=== PATIENT | female | born 1945 ===

== ENCOUNTER 2019-01-25 13:05 | Inpatient (IN) | payer MEDICARE ==
[~2019-01-25] VITALS: Ht 162.6 cm; Wt 67.6 kg
[2019-01-25] MEDS ORDERED: ELIQUIS5 MG PO (15:45)
[2019-01-25] MEDS ORDERED: BAYER CHEWABLE81 MG PO (15:45)
[2019-01-25] MEDS ORDERED: LIPITOR40 MG PO (15:46)
[2019-01-25] MEDS ORDERED: KLONOPIN0.5 MG PO (15:46)
[2019-01-25] MEDS ORDERED: PROZAC10 MG PO (15:46)
--- NOTE | 2019-01-25 17:10 | NUR ---
SPOKE WITH DR ANAYA PERTAINING TO PT'S BLOOD THINNER MEDICATIONS. ORDERS TO START ON ELIQUIS 5MG BID. ORDERS PLACED.
[2019-01-25 21:17] VITALS: BP 121/55
--- NOTE | 2019-01-25 21:31 | NUR ---
AWAKE AND RESTING IN BED. RESPIRATIONS UNALBORED. SPEECH GARLBLED. MOVES EXTREMITIES WELL WITH MILD LEFT SIDED WEAKNESS. NO ACUTE DISTRESS NOTED. CALL LIGHT IN REACH.
--- NOTE | 2019-01-26 01:02 | NUR ---
SLEEPING IN BED WITH RESPIRAITONS UNLABORED. NO DISTRESS NOTED. CALL LIGHT IN REACH.
--- NOTE | 2019-01-26 05:16 | NUR ---
QUIET HOURS. RESTING IN BED WITH NO DISTRESS NOTED. NO ACUTE CHANGES IN CONDITION THIS SHIFT. CALL LIGHT IN REACH.
[2019-01-26 07:33] LABS: BASOPHILS 0.7 % (0-2); EOSINOPHILS 2.2 % (0-7); HEMATOCRIT 35.9 % (36.0-48.0); HEMOGLOBIN 11.9 g/dL (12-16); IMMATURE GRANULOCYTES 0.4 % (0-5); LYMPHOCYTES 20.8 % (15-50); MCH 29.5 pg (26.0-34.0); MCHC 33.1 g/dL (31.0-37.0); MCV 89.1 fL (80.0-100.0); MONOCYTES 15.5 % (2-11); NEUTROPHILS 60.4 % (40-80); PLATELET COUNT 198 10x3/uL (130-400); RBC 4.03 10x6/uL (4.00-5.40); WBC 5.3 10x3/uL (4.8-10.8)
[2019-01-26 08:00] VITALS: BP 114/57
[2019-01-26 08:06] LABS: CALC OSMOLALITY 280 mosm/kg (275-300); CARBON DIOXIDE 26.9 mmol/L (21.0-32.0); CHLORIDE - SERUM 105 mmol/L (98-107); CREATININE - SERUM 0.6 mg/dL (0.6-1.3); GLUCOSE 94 mg/dL (74-106); POTASSIUM - SERUM 3.6 mmol/L (3.5-5.1); SODIUM 141 mmol/L (136-145); UREA NITROGEN 13 mg/dL (7-18); eGFR NON AFRICAN AMERICAN > 90 mL/min (90-120)
--- NOTE | 2019-01-26 08:45 | NUR ---
PT AM MEDS ADMINISTERED WHOLE WITH THICKENED WATER. PT SITTING UP FOR BREAKFAST D/T WRONG TRAY BEING INITIALLY BROUGHT. PT DENIES NEEDS. WCTM.
[2019-01-26 09:13] VITALS: Ht 162.6 cm; Wt 67.6 kg
[2019-01-26 19:34] VITALS: BP 118/59
--- NOTE | 2019-01-26 20:04 | NUR ---
AWAKE AND ALERT. SITTING UP IN BED. ASSIST TO BATHROOM TO BRUSH TEETH. MOVES EXTREMITIES WELL. SPEECH SLOW AND GARBLED AT TIMES. OTHER TIMES SHE CAN SAY WORDS CLEARLY. RESPIRATIONS UNLABORED. N0 ACUTE DISTRESS NOTED.
--- NOTE | 2019-01-26 23:47 | NUR ---
PATIENT GOT OUT OF BED WITHOUT CALLING FOR ASSISTANCE. THAT IS THE SECOND TIME THIS SHIFT. BED ALARM ON. REMINDED PAITENT TO ALWAYS CALL FOR ASSISTANCE BEFORE GETTING OUT OF BED. VOICES UNDERSTANDING.
--- NOTE | 2019-01-27 01:28 | NUR ---
RESTING IN BED WITH EYES CLOSED AND RESPIRATIONS UNLABORED. NO DISTRESS NOTED. CALL LIGHT IN REACH.
--- NOTE | 2019-01-27 05:36 | NUR ---
QUIET HOURS. AFTER EDUCATION DONE ON NOT GETTING UP WITHOUT CALLING FOR ASSISTANCE PATIENT DID CALL NURSE BEFORE GOING TO BATHROOM A LITTLE WHILE AGO. NOW RESTING IN BED WITH NO ACUTE DISTRESS NOTED. CALL LIGHT IN REACH.
[2019-01-27 07:24] LABS: BASOPHILS 0.4 % (0-2); EOSINOPHILS 2.8 % (0-7); HEMATOCRIT 36.1 % (36.0-48.0); HEMOGLOBIN 11.5 g/dL (12-16); IMMATURE GRANULOCYTES 0.6 % (0-5); LYMPHOCYTES 24.5 % (15-50); MCH 29.6 pg (26.0-34.0); MCHC 31.9 g/dL (31.0-37.0); MCV 92.8 fL (80.0-100.0); MEAN PLATELET VOLUME 10.5 fL (7.4-10.4); MONOCYTES 14.8 % (2-11); NEUTROPHILS 56.9 % (40-80); PLATELET COUNT 250 10x3/uL (130-400); RBC 3.89 10x6/uL (4.00-5.40); WBC 4.9 10x3/uL (4.8-10.8)
[2019-01-27 07:37] VITALS: BP 112/57
[2019-01-27 07:50] LABS: CALC OSMOLALITY 277 mosm/kg (275-300); CARBON DIOXIDE 29.4 mmol/L (21.0-32.0); CHLORIDE - SERUM 104 mmol/L (98-107); CREATININE - SERUM 0.7 mg/dL (0.6-1.3); GLUCOSE 88 mg/dL (74-106); POTASSIUM - SERUM 3.4 mmol/L (3.5-5.1); SODIUM 140 mmol/L (136-145); UREA NITROGEN 12 mg/dL (7-18); eGFR NON AFRICAN AMERICAN 87 mL/min (90-120)
--- NOTE | 2019-01-27 09:21 | NUR ---
PT AM MEDS ADMINISTERED. PT DENIES NEEDS. WCTM.
--- NOTE | 2019-01-27 19:45 | NUR ---
PT SITTING UP IN BED WATCHING TV. ALERT AND ORIENTED X4. NO CONCERNS VOICED. DENIES ANY PAIN.
[2019-01-27 20:36] VITALS: BP 117/45
--- NOTE | 2019-01-27 22:09 | NUR ---
PT RESTING IN BED VISITING WITH HER ROOM MATE. NO NEEDS VOICED.
--- NOTE | 2019-01-27 23:37 | NUR ---
I have reviewed this patient and I concur with the Shift Assessment completed by the Licensed Practical Nurse today this shift.
--- NOTE | 2019-01-28 03:19 | NUR ---
RESTING IN BED WITH EYES CLOSED.
--- NOTE | 2019-01-28 06:32 | NUR ---
PT RESTING IN BED WITH EYES CLOSED. NO ACUTE DISTRESS NOTED.
[2019-01-28 08:07] VITALS: BP 104/46
--- NOTE | 2019-01-28 08:55 | NUR ---
ALERT AND ORIENTED. NO C/O PAIN. RESP EVEN AND UNLABORED. CL IN REACH.
--- NOTE | 2019-01-28 16:40 | NUR ---
NO CHANGE IN ASSESSMENT. NO C/O PAIN. RESP EVEN AND UNLABORED. FAMILY AT BS. CL IN REACH.
[2019-01-28 20:00] VITALS: BP 100/41
--- NOTE | 2019-01-28 23:36 | NUR ---
I have reviewed this patient and I concur with the Shift Assessment completed by the Licensed Practical Nurse today this shift.
--- NOTE | 2019-01-29 02:27 | NUR ---
RESTING IN BED WITH EYES CLOSED.
--- NOTE | 2019-01-29 05:59 | NUR ---
PT RESTING QUIETLY IN BED WITH EYES CLOSED. NO ACUTE DISTRESS NOTED.
--- NOTE | 2019-01-29 07:32 | NUR ---
ALERT. EXPRESSIVE APHASIA. NO C/O PAIN. RESP EVEN AND UNLABORED. CL IN REACH.
[2019-01-29 08:36] VITALS: BP 112/43
--- NOTE | 2019-01-29 13:33 | NUR ---
NO DISTRESS NOTED. FAMILY IN ROOM. BED ALARM IN USE. CL IN REACH.
--- NOTE | 2019-01-29 16:34 | NUR ---
FAMILY AT BS. PATIENT SITTING IN CHAIR. NO DISTRESS NOTED. CL IN REACH.
--- NOTE | 2019-01-29 19:16 | NUR ---
PT IS RESTING IN BED WITH EYES OPEN. ALERT AND ORIENTED X 3. DENIES ACUTE PAIN OR DISCOMFORT. PT IS VERBALLY APHASIC, AND HAS TROUBLE SAYING THINGS CORRECTLY AT TIMES. VSS. SR'S ARE UP X 2 IN BED. CALL LIGHT AND BEDSIDE TABLE ARE WITHIN EASY REACH.
[2019-01-29 19:25] VITALS: BP 111/53
--- NOTE | 2019-01-29 21:25 | NUR ---
I have reviewed this patient and I concur with the Shift Assessment completed by the Licensed Practical Nurse today this shift.
--- NOTE | 2019-01-29 23:24 | NUR ---
PT RESTING IN BED WITH EYES CLOSED. NO ACUTE DISTRESS NOTED.
--- NOTE | 2019-01-30 04:10 | NUR ---
RESTING IN BED WITH EYES CLOSED.
--- NOTE | 2019-01-30 07:23 | NUR ---
RESTING W DISTRESS. NO C/O PAIN. ALARM ON BED.
[2019-01-30 08:00] VITALS: BP 91/48
--- NOTE | 2019-01-30 08:11 | NUR ---
SHOWER GIVEN PER NURSING.
--- NOTE | 2019-01-30 09:07 | NUR ---
NON COMPLIANT WITH SAFETY PRECAUTIONS. TURNS OFF ALARM. GETS UP BY HERSELF. DOES NOT WANT FAMILY OR STAFF TO ASSIST HER TO BR. SAFETY REINFORCED.
--- NOTE | 2019-01-30 14:04 | NUR ---
PATIENT ADMITTED TO REHAB FROM AN OUTSIDE FACILITY. PATIENT HAS SUSTAINED A CVA AND AT THIS TIME DISCHARGE PLANS ARE UNCERTAIN. WILL CONTINUE TO FOLLOW WITH PATIENT AND WILL AISST WITH NEEDS.
--- NOTE | 2019-01-30 19:04 | NUR ---
VISITING WITH FAMILY. FAMILY IS WHEELING HER AROUND TO LOBBY. NO ACUTE DISTRESS NOTED.
--- NOTE | 2019-01-30 20:03 | NUR ---
BACK IN ROOM. RESTING IN BED WITH NO ACUTE DISTRESS NOTED. CONTINUES TO HAVE EXPRESSIVE APHASIA. CALL LIGHT IN REACH.
[2019-01-30 20:37] VITALS: BP 144/48
--- NOTE | 2019-01-30 23:42 | NUR ---
RESTING IN BED WITH EYES CLOSED AND RESPIRATIONS UNLABORED. NO DISTRESS NOTED. CALL LIGHT IN REACH.
--- NOTE | 2019-01-31 02:33 | NUR ---
SLEEPING WITH RESPIRATIONS UNLABORED. NO DISTRESS NOTED.
--- NOTE | 2019-01-31 05:43 | NUR ---
QUIET HOURS. NO ACUTE CHANGES IN CONDITION THIS SHIFT. HAS BEEN UP TO BATHROOM A COUPLE OF TIMES THIS SHIFT BUT SLEPT OTHERWISE. RESPIRATIONS UNLABORED. NO DISTRESS NOTED.
[2019-01-31 07:42] VITALS: BP 98/46
[2019-01-31 07:49] LABS: BASOPHILS 0.7 % (0-2); EOSINOPHILS 2.8 % (0-7); HEMATOCRIT 34.7 % (36.0-48.0); IMMATURE GRANULOCYTES 0.2 % (0-5); LYMPHOCYTES 20.7 % (15-50); MCH 29.4 pg (26.0-34.0); MCHC 31.7 g/dL (31.0-37.0); MCV 92.8 fL (80.0-100.0); MONOCYTES 15.7 % (2-11); NEUTROPHILS 59.9 % (40-80); PLATELET COUNT 271 10x3/uL (130-400); RBC 3.74 10x6/uL (4.00-5.40); RDW 13.9 % (11.5-14.5); WBC 4.6 10x3/uL (4.8-10.8)
--- NOTE | 2019-01-31 08:01 | NUR ---
ALERT AND ORIENTED. NO C/O PAIN. RESP EVEN AND UNLABORED. CL IN REACH.
[2019-01-31 08:03] LABS: CALC OSMOLALITY 279 mosm/kg (275-300); CALCIUM 8.4 mg/dL (8.5-10.1); CARBON DIOXIDE 27.5 mmol/L (21.0-32.0); CHLORIDE - SERUM 106 mmol/L (98-107); CREATININE - SERUM 0.6 mg/dL (0.6-1.3); GLUCOSE 91 mg/dL (74-106); POTASSIUM - SERUM 4.5 mmol/L (3.5-5.1); SODIUM 140 mmol/L (136-145); UREA NITROGEN 14 mg/dL (7-18); eGFR NON AFRICAN AMERICAN > 90 mL/min (90-120)
--- NOTE | 2019-01-31 11:01 | NUR ---
Nutrition Follow-up: Diet: Regular with chopped meats and thin liquids PO intake: ~88% average x 10 meals Labs and meds reviewed. +BM STILL NO WEIGHT ENTERED INTO CHART SINCE ADMIT. Continue current nutrition regimen. Please get weight on pt. RD Following
--- NOTE | 2019-01-31 13:25 | NUR ---
RESTING. NO DISTRESS. AT BS. CL IN REACH.
--- NOTE | 2019-01-31 16:38 | NUR ---
NO CHANGE IN ASSESSMENT. RESP EVEN AND UNLABORED. CL IN REACH. IN ROOM.
--- NOTE | 2019-01-31 19:00 | NUR ---
AWAKE AND ALERT. SITTING ON BED TALKING WITH DAUGHTER. STATES SHE HAD A GOOD DAY. CONTINUES TO HAVE EXPRESSIVE APHASIA BUT IS CONCENTRATING MORE ON WORDS AND SPEAKING BETTER. NO NEEDS VOICED. NO DISTRESS NOTED.
[2019-01-31 20:56] VITALS: BP 130/49
--- NOTE | 2019-02-01 06:09 | NUR ---
QUIET HOURS. NO ACUTE CHANGES IN CONDITION THIS SHIFT. RESTING IN BED WITH NO DISTRESS NOTED. CALL LIGHT IN REACH.
[2019-02-01 07:57] VITALS: BP 118/43
--- NOTE | 2019-02-01 08:03 | NUR ---
PT SITTING UP EATING BREAKFAST, DENIES NEEDS. WCTM.
[2019-02-01 15:17] LABS: ERYTHROCYTE SEDIMENTATION RATE 10 mm/hr (0-30)
--- NOTE | 2019-02-01 17:30 | NUR ---
PT EATING DINNER, DENIES NEEDS. WCTM.
--- NOTE | 2019-02-01 19:20 | NUR ---
BEDSIDE REPORT COMPLETE. PT SITTING UP IN BED VISITING WITH FAMILY. NO CONCERNS VOICED. DENIES ANY PAIN. RR EVEN AND UNLABORED. VS STABLE. SHIFT ASSESSMENT COMPLETE. CALL LIGHT WITHIN REACH, FALL PRECAUTIONS IN PLACE. WILL CONTINUE TO MONITOR
[2019-02-01 20:45] VITALS: BP 114/51
--- NOTE | 2019-02-01 23:57 | NUR ---
PT LYING IN BED EYES CLOSED RESTING QUIETLY. NO SIGNS OF DISTRESS NOTED.
--- NOTE | 2019-02-02 03:13 | NUR ---
PT LYING IN BED EYES CLOSED RESTING QUIETLY.
--- NOTE | 2019-02-02 05:39 | NUR ---
PT LYING IN BED EYES CLOSED RESTING. RR EVEN AND UNLABORED. WILL CONTINUE TO MONITOR
[2019-02-02 07:32] VITALS: BP 110/54
--- NOTE | 2019-02-02 07:40 | NUR ---
PT AM MEDS ADMINISTERED. PT DENIES NEEDS. WCTM.
--- NOTE | 2019-02-02 11:03 | NUR ---
CARE TEAM MEETING: PATIENT FAMILY ATTENDED THE MEETING. PATIENT TENATIVE DISCHARGE DATE IS 02/08/19 WHERE SHE WILL DISCHARGE HOME WITH HER FAMILY. WILL CONTINUE TO FOLLOW WITH PATIENT.
--- NOTE | 2019-02-02 19:35 | NUR ---
PT SITTING UP WATCHING TV. CL IN REACH. DENIES NEEDS AT THIS TIME. BED IN LOW SIDE RAILS X2. A/O X4. LUNGS CLEAR. BOWEL ACTIVE X4. RESP EVEN AND UNLABORED. WILL CONTINUE TO MONITOR.
[2019-02-02 21:11] VITALS: BP 126/50
--- NOTE | 2019-02-02 23:45 | NUR ---
UP TO BATHROOM. DENIES NEEDS. CL IN REACH. WCTM
--- NOTE | 2019-02-03 01:30 | NUR ---
PT UP TO BATHROOM. DENIES NEEDS AT THIS TIME. WCTM CL IN REACH.
--- NOTE | 2019-02-03 04:28 | NUR ---
I have reviewed this patient and I concur with the Shift Assessment completed by the Licensed Practical Nurse today this shift.
[2019-02-03 06:40] LABS: EOSINOPHILS 3.1 % (0-7); HEMATOCRIT 37.7 % (36.0-48.0); HEMOGLOBIN 11.7 g/dL (12-16); IMMATURE GRANULOCYTES 0.4 % (0-5); LYMPHOCYTES 23.7 % (15-50); MCH 29.3 pg (26.0-34.0); MCV 94.5 fL (80.0-100.0); MEAN PLATELET VOLUME 9.6 fL (7.4-10.4); MONOCYTES 14.7 % (2-11); NEUTROPHILS 57.1 % (40-80); PLATELET COUNT 273 10x3/uL (130-400); RBC 3.99 10x6/uL (4.00-5.40); RDW 13.9 % (11.5-14.5); WBC 5.2 10x3/uL (4.8-10.8)
[2019-02-03 06:48] LABS: CALC OSMOLALITY 282 mosm/kg (275-300); CALCIUM 8.1 mg/dL (8.5-10.1); CARBON DIOXIDE 26.1 mmol/L (21.0-32.0); CHLORIDE - SERUM 108 mmol/L (98-107); CREATININE - SERUM 0.6 mg/dL (0.6-1.3); GLUCOSE 84 mg/dL (74-106); POTASSIUM - SERUM 4.9 mmol/L (3.5-5.1); SODIUM 142 mmol/L (136-145); UREA NITROGEN 14 mg/dL (7-18); eGFR NON AFRICAN AMERICAN > 90 mL/min (90-120)
--- NOTE | 2019-02-03 08:17 | NUR ---
PT AM MEDS ADMINISTERED. PT DENIES NEEDS. WCTM.
[2019-02-03 08:55] VITALS: BP 108/51
--- NOTE | 2019-02-03 14:42 | NUR ---
Nutrition Follow Up: Patient has been eating well. She has some trouble speaking. She stated her appetite has been good. Denies N/V/D/C. She stated she wanted her diet with normal meats and she can drink out of straws. Dietitian changed patient to a regular diet. No nutrition concerns at this time. Clinical dietitian following
--- NOTE | 2019-02-03 17:38 | NUR ---
PT EATING DINNER, DENIES NEEDS. WCTM
--- NOTE | 2019-02-03 20:00 | NUR ---
PATIENT RECEIVED SITTING UP IN BED WATCHING TV. ASSESSMENT & VITAL SIGNS DONE. NO C/O PAIN OR DISTRESS. BED LOW. ALARM ON. CALL LIGHT WITHIN REACH.WILL CONTINUE TO MONITOR.
[2019-02-03 22:00] VITALS: BP 121/47
--- NOTE | 2019-02-04 02:56 | NUR ---
I have reviewed this patient and I concur with the Shift Assessment completed by the Licensed Practical Nurse today this shift.
--- NOTE | 2019-02-04 03:40 | NUR ---
PATIENT EYES CLOSED. RESPIRATIONS 18 & EVEN. BED LOW. ALARM ON. CALL LIGHT WITHIN REACH. WILL CONTINUE TO MOITOR.
[2019-02-04 07:19] VITALS: BP 112/44
--- NOTE | 2019-02-04 10:32 | NUR ---
NO C/O PAIN OR DISTRESS. SAFETY PRECAUTIONS REINFORCED. DOES NOT LIKE ASSIST TO BR.
--- NOTE | 2019-02-04 13:40 | NUR ---
RESTING IN BED. NO DISTRESS NOTED. CL IN REACH.
--- NOTE | 2019-02-04 17:17 | NUR ---
NO CHANGE IN ASSESSMENT. EATING DINNER IN ROOM.
--- NOTE | 2019-02-04 19:40 | NUR ---
BEDSIDE REPORT COMPLETE. PT SITTING UP IN BED WATCHING TV. ALERT AND ORIENTED X4. DENIES ANY NEEDS OR PAIN. VS STABLE. SHIFT ASSESSMENT COMPLETE. NO FAMILY NOTED AT BEDSIDE. CALL LIGHT WITHIN REACH, FALL PRECAUTIONS IN PLACE. WILL CONTINUE TO MONITOR
[2019-02-04 21:03] VITALS: BP 116/48
--- NOTE | 2019-02-04 23:21 | NUR ---
QUIET HOURS. PT LYING IN BED ON RIGHT SIDE EYES CLOSED RESTING QUIETLY. NO SIGNS OF DISTRESS NOTED. WILL CONTINUE TO MONITOR
--- NOTE | 2019-02-05 03:02 | NUR ---
PT LYING IN BED ON RIGHT SIDE EYES CLOSED RESTING QUIETLY.
--- NOTE | 2019-02-05 06:01 | NUR ---
PT LYING IN BED ON LEFT SIDE EYES CLOSED RESTING QUIETLY. NO SIGNS OF DISTRESS NOTED.
[2019-02-05 08:00] VITALS: BP 110/51
--- NOTE | 2019-02-05 09:28 | NUR ---
PATIENT IS ALERT/ORIENT WITH FORGETFULLNESS AND IS IMPULSIVE. BED ALARM ON. PATIENT WILL TURN OFF BED ALARM WHEN IT GOES OFF. PATIENT FORGETS TO USE CALL LIGHT. ROOM UP BY NURSING STATION FOR PRECAUSION. PATIENT VOCIES NO NEEDS AT THIS TIME. WILL CONTINUE WITH PLAN OF CARE
--- NOTE | 2019-02-05 13:50 | NUR ---
PATIENT LEFT WITH FAMILY ON THERAPEUTIC PASS.
--- NOTE | 2019-02-05 16:00 | NUR ---
PATIENT BACK FROM THERAPEUTIC PASS. RELEASE FORM FILLED OUT
--- NOTE | 2019-02-05 19:03 | NUR ---
BEDSIDE REPORT COMPLETE. PT SITTING UP IN BED VISITING WITH ROOMMATE. DENIES ANY NEEDS OR PAIN. NO SIGNS OF DISTRESS NOTED. CALL LIGHT AND WATER WITHIN REACH, FALL PRECAUTIONS IN PLACE. WILL CONTINUE TO MONITOR
[2019-02-05 20:35] VITALS: BP 103/47
--- NOTE | 2019-02-05 23:38 | NUR ---
QUIET HOURS. PT LYING IN BED ON LEFT SIDE EYES CLOSED RESTING QUIETLY. RR EVEN AND UNLABORED.
--- NOTE | 2019-02-06 03:21 | NUR ---
PT LYING IN BED ON RIGHT SIDE EYES CLOSED RESTING QUIETLY. NO SIGNS OF DISTRESS NOTED.
--- NOTE | 2019-02-06 06:14 | NUR ---
PT LYING IN BED ON LEFT SIDE EYES CLOSED RESTING QUIETLY.
[2019-02-06 06:19] LABS: BASOPHILS 0.9 % (0-2); EOSINOPHILS 2.4 % (0-7); HEMATOCRIT 37.1 % (36.0-48.0); HEMOGLOBIN 11.8 g/dL (12-16); IMMATURE GRANULOCYTES 0.2 % (0-5); LYMPHOCYTES 27.6 % (15-50); MCH 29.8 pg (26.0-34.0); MCHC 31.8 g/dL (31.0-37.0); MCV 93.7 fL (80.0-100.0); MEAN PLATELET VOLUME 9.9 fL (7.4-10.4); MONOCYTES 13.2 % (2-11); NEUTROPHILS 55.7 % (40-80); PLATELET COUNT 303 10x3/uL (130-400); RBC 3.96 10x6/uL (4.00-5.40); RDW 13.8 % (11.5-14.5); WBC 4.6 10x3/uL (4.8-10.8)
[2019-02-06 06:34] LABS: CALC OSMOLALITY 284 mosm/kg (275-300); CALCIUM 8.4 mg/dL (8.5-10.1); CARBON DIOXIDE 26.6 mmol/L (21.0-32.0); CHLORIDE - SERUM 108 mmol/L (98-107); CREATININE - SERUM 0.6 mg/dL (0.6-1.3); GLUCOSE 87 mg/dL (74-106); POTASSIUM - SERUM 4.3 mmol/L (3.5-5.1); SODIUM 143 mmol/L (136-145); UREA NITROGEN 14 mg/dL (7-18); eGFR NON AFRICAN AMERICAN > 90 mL/min (90-120)
[2019-02-06 08:00] VITALS: BP 99/44
--- NOTE | 2019-02-06 08:00 | NUR ---
PATIENT IS ALERT WITH SOME FORGETFULLNESS. BED ALARM ON, PATIENT WILL TURN OFF BED ALARM SOON SHE GETS UP. PATIENT HAS A STEADY GAIT. IMPULSIVE AT TIMES. WILL CONTINUE WITH PLAN OF CARE
--- NOTE | 2019-02-06 11:52 | NUR ---
PATIENT IN REHAB ROOM. WORKING WITH PHYSICAL THERAPIST. DENIES ANY PAIN/DISC AT THIS TIME
--- NOTE | 2019-02-06 19:31 | NUR ---
AWAKE AND ALERT. RESPIRATIONS UNLABORED. CONTINUES TO HAVE SOME EXPRESSIVE APHASIA BUT SPEECH IS IMPROVING. MINIMAL ASSIST WITH TRANSFERS. NO ACUTE DISTRESS NOTED. CALL LIGHT IN REACH.
[2019-02-06 20:44] VITALS: BP 128/40
--- NOTE | 2019-02-07 01:10 | NUR ---
SLEEPING WITH RESPIRATIONS UNLABORED. NO DISTRESS NOTED. CALL LIGHT IN REACH.
--- NOTE | 2019-02-07 02:53 | NUR ---
SLEEPING WITH RESPIRATIONS UNLABORED. NO DISTRESS NOTED. CALL LIGHT IN REACH.
--- NOTE | 2019-02-07 05:09 | NUR ---
QUIET HOURS. NO ACUTE CHANGES IN CONDITION THIS SHIFT. RESPIRATIONS UNLABORED. NO DISTRESS NOTED. CALL LIGHT IN REACH.
--- NOTE | 2019-02-07 07:22 | NUR ---
RESTING WO DISTRESS. RESP EVEN AND UNLABORED. CL IN REACH.
[2019-02-07 08:00] VITALS: BP 99/43
--- NOTE | 2019-02-07 09:08 | NUR ---
SHOWER TODAY WILL BE DONE PER OT.
--- NOTE | 2019-02-07 13:32 | NUR ---
RESTING IN ROOM AT THIS TIME. RESP EVEN AND UNLABORED. CL IN REACH.
--- NOTE | 2019-02-07 15:59 | NUR ---
NO CHANGE IN ASSESSMENT. RESP EVEN AND UNLABORED. NO C/O PAIN. CL IN REACH.
[2019-02-07 19:30] VITALS: BP 131/57
--- NOTE | 2019-02-07 19:30 | NUR ---
BEDSIDE REPORT COMPLETE. PT SITTING UP IN W/C WATCHING TV. ALERT AND ORIENTED X4. DENIES ANY NEEDS OR PAIN. NO SIGNS OF ACUTE DISTRESS NOTED. VS STABLE. SHIFT ASSESSMENT COMPLETE. CALL LIGHT AND WATER WITHIN REACH, FALL PRECAUTIONS IN PLACE. WILL CONTINUE TO MONITOR
--- NOTE | 2019-02-07 23:15 | NUR ---
QUIET HOURS. PT LYING IN BED ON RIGHT SIDE EYES CLOSED RESTING QUIETLY. RR EVEN AND UNLABORED. WILL CONTINUE TO MONITOR
--- NOTE | 2019-02-08 05:01 | NUR ---
PT LYING IN BED ON LEFT SIDE EYES CLOSED RESTING QUIETLY. RR EVEN AND UNLABORED. WILL CONTINUE TO MONITOR
--- NOTE | 2019-02-08 07:13 | NUR ---
RESTING WO DISTRESS. RESP EVEN AND UNLABORED. CL IN REACH.
[2019-02-08 08:04] VITALS: BP 141/58
--- NOTE | 2019-02-08 10:22 | NUR ---
PATIENT DISCHARGING HOME TODAY WITH FAMILY. [facility] WILL PROVIDE THERAPY AT HOME. NO DME NEEDED AT THIS TIME. DR. PILLAI 02/14/19 @ 10:30, DR. LUIS TIPTON 04/18/19 @ 11:30. PATIENT CHOICE FORM AND IMFM FORMS SIGNED, COPY GIVEN TO PATIENT AND FILED IN CHART. DISCHARGE INSTRUCTIONS FAXED TO PCP, HOME HEALTH AND REVIEWED WITH PATIENT AND FAMILY.
--- NOTE | 2019-02-09 13:43 | RHP ---
PATIENT: YOLA FRANCO MEDICAL RECORD: [id number] ACCOUNT: [id number] LOCATION:[facility] : 45 ADMISSION DATE: 01/25/19 REHABILITATION HISTORY AND PHYSICAL EXAMINATION POST ADMISSION PHYSICIAN EXAMINATION ADMITTING DIAGNOSIS: CVA. HISTORY OF PRESENT ILLNESS: The patient is a 73-year-old female patient, who presented to [facility] over in [place] with acute onset of right-sided weakness and severe expressive aphasia. She was unable to move her right upper extremity, had minimal movement in her right leg. CT showed no bleeding. TPA was administered. CTA showed terminal left internal carotid artery occlusion and the patient was transferred to EMS for evaluation of mechanical thrombectomy. MRI showed moderate-sized left middle cerebral artery territory infarct involving the insula, the adjacent frontal and temporal operculums, and lateral temporal cortex. Infarct also involved the lentiform nucleus and the body of the caudate nucleus. There was a small subcentimeter focus of hemorrhagic transformation with the lentiform nucleus, but no significant mass effect. The patient underwent successful thrombectomy with TICI3 reperfusion. CVA was thought to be cardioembolic. His EKG showed atrial fibrillation. She is tolerating mechanical soft honey thickened diet. She has extubation to her right arm with some blistering, swelling, but the dressing is intact. The patient participated with therapy. She has ambulated 40 feet with contact guard. She has min assist for transfers with contact guard and perform her ADLs with min assist. The patient follows commands; however, continues to have mixed expressive and receptive aphasia. Prior to hospitalization, she lived at home with her . She was completely independent with ambulation and ADLs. She was extremely healthy and active per family. She is highly motivated to return home. COMORBIDITIES: Include depression, gastroesophageal reflux disease, pneumonia, and restless leg syndrome. PAST MEDICAL HISTORY: Significant for pneumonia, depression, restless legs, and gastroesophageal reflux disease. PAST SURGICAL HISTORY: Includes hysterectomy, cholecystectomy, and rhinoplasty. ALLERGIES: No known drug allergies. CURRENT MEDICATIONS: At this time just include Prozac 10 mg daily, atorvastatin 40 mg daily, Eliquis 5 mg b.i.d., and Klonopin 0.5 mg b.i.d. p.r.n. HABITS: No alcohol or tobacco use. FAMILY HISTORY: Noncontributory. SOCIAL HISTORY: The patient hopes to return back home. REVIEW OF SYSTEMS: GENERAL: It is difficult to obtain secondary to her somewhat noted expressive aphasia, but she does complain of weakness. HEENT: She denies cold, cough, or congestion. CARDIOVASCULAR: Denies chest pain. HISTORY AND PHYSICAL [id number] YOLA FRANCO PHYSICAL EXAMINATION: VITAL SIGNS: Stable, afebrile. GENERAL: A well-developed elderly female, in no acute distress, alert upon exam. HEENT: Normocephalic and atraumatic. Mucosa moist. NECK: Supple. No lymphadenopathy. LUNGS: Clear at this time. No wheezing or rales. HEART: Irregular rate and rhythm. No murmurs, rubs or gallops. ABDOMEN: Benign. EXTREMITIES: No clubbing, cyanosis or edema. NEUROLOGIC: She does have noted weakness on the right. LABORATORY DATA: White count is 5.3, H&H of 11 and 35.9, and platelet count is noted to be 198. Sodium 141, potassium 3.7, BUN and creatinine of 13 and 0.6, and blood sugar noted to be 94. ASSESSMENT: This is a 73-year-old female patient admitted to rehab with a working diagnosis of cerebrovascular accident with right body involvement and expressive aphasia. The patient has potential to make improvement. We instituted the following multidisciplinary therapies include, but not limited to physical, occupational, respiratory, speech, nutritional services, prosthetics and orthotics. Given her complex medical condition and risk for more complications, rehabilitation services cannot be provided at a low level of care such as skilled nurse facility. PLAN: 1. Admit to [facility] for intensive inpatient therapy to include the following disciplines: A. Physical therapy to improve gait, all transfer skills and bed mobility to a modified independent level. B. Occupational therapy to a modified independent level. C. Case management to assist with discharge planning and placement options. D. Nutrition to assist with nutritional needs. E. Rehabilitation nursing to assist in monitoring the patient's underlying medical conditions and to assist with any type of bowel or bladder management. 2. The patient's current medication and medical care will be continued. 3. The patient will be placed on standard fall precautions. 4. The patient's estimated length of stay is approximately 7-10 days. 5. We will discuss this patient during care team staff meeting this week. We will go ahead and continue to have her seen by speech and occupational therapy and we will see again in the a.m. TRANSINT:[id number] Voice Confirmation ID: [id number] DOCUMENT ID: [id number] CHRISTINA notes whether there has been none or any medical/functional change since admission: - No change since preadmission screen. CHRISTINA attests patient continues to be appropriate for IRF: - Continues to be appropriate. HISTORY AND PHYSICAL [id number] YOLA FRANCO,BENNY JOSEPH MD at 1343 CC: [id number] DICTATION DATE: 01/26/19 0841 [employer]: 01/26/19 1031 DIS IN 02/08/19 [facility] [address] [place] [address]
--- NOTE | 2019-04-04 09:55 | DS ---
PATIENT:YOLA FRANCO :45 MEDICAL RECORD: [id number] DISCHARGE SUMMARY ADMISSION DATE: 01/25/19 DISCHARGE DATE: 02/08/19 This is a discharge dated 02/08/2019 from inpatient rehabilitation. PRIMARY DIAGNOSIS: Decreased functional ability and ability to provide activities of daily living secondary to cerebrovascular accident. She is status post TPA infusion as well as mechanical thrombectomy. SECONDARY DIAGNOSES: 1. Atrial fibrillation. 2. Depression. 3. Gastroesophageal reflux disease. 4. Restless leg syndrome. 5. Hypokalemia. 6. Hyperlipidemia. 7. Expressive aphasia. HOSPITAL COURSE: Full H&P is located elsewhere on the chart on this 73-year-old female who was admitted to inpatient rehab for physical therapy and occupational therapy to improve gait, transfer skills, bed mobility, and activities of daily living to a modified independent level. She was evaluated by PT, OT and ST and their plans of care were followed. She required long-term care for observation and assessment, medication administration. Electrolytes were managed by protocol. She was cooperative with therapies, progressing towards goals. Case management was involved for discharge planning. She was considered stable for discharge on 02/08/2019 having met all of her long-term PT goals as well as all of her OT goals. She made significant progress with speech therapy, but further therapy was recommended. DISCHARGE MEDICATIONS: As per discharge medication reconciliation. DISCHARGE DISPOSITION: The patient is discharged home. She will have care for home, home health for continued speech therapy and long-term care. She will follow up with primary care and specialists as directed. At least 30 minutes was spent in this discharge activity. TRANSINT:[id number] Voice Confirmation ID: [id number] DOCUMENT ID: [id number] Dictated By: DEMARCUS TALLEY I have interviewed/examined the above patient and agree with these documented findings. BENNY ANAYA MD at 0958 at 0955 CC: [id number] DICTATION DATE: 04/02/191739 ARCHITECTURE DEPARTMENT CHAIR: 04/03/19 0123 DIS IN 02/08/19 [facility] [address] [place] [address]
== END 2019-02-08 10:00 | disposition home health service (06) | DRG 56 ==
LOC: D.REHAB 13:05
PROVIDERS: ADMIT Emergency Medicine; ATTEND Emergency Medicine
DX: I69.320 Aphasia following cerebral infarction (principal); J18.9 Pneumonia, unspecified organism; F32.9 Major depressive disorder, single episode, unspecified; K21.9 Gastro-esophageal reflux disease without esophagitis; G25.81 Restless legs syndrome